=== PATIENT | male | born 1945 | race Caucasian/White ===

== ENCOUNTER 2020-09-09 09:00 | Observation (INO) ==
[~2020-09-09 09:00] MED LIST: Buffered Lidocaine 1% SYRIN 1 ml INTRADERM ONE; Dexamethasone IV 4 MG/ML VIAL 1 ml VIAL IV SLOW PU ONE; Famotidine IV 10 MG/ML 2 ml VIAL (20 mg) IV ONE; Lactated Ringers 1000 ml BAG 1,000 ML IV SCH
[2020-09-09] MEDS ORDERED: cefTRIAXone 2 GM ADDV.VIAL ONE (09:19)
[2020-09-09] MEDS ORDERED: Famotidine IV 10 MG/ML 2 ml VIAL (20 mg) ONE (09:19)
[2020-09-09] MEDS ORDERED: Dexamethasone IV 4 MG/ML VIAL 1 ml VIAL ONE (09:19)
[2020-09-09] MEDS ORDERED: fentaNYL 100 mcg/2 ml 50 MCG/ML VIAL ONE (11:14)
[2020-09-09] MEDS ORDERED: Midazolam 2 mg/2 ml VIAL 1 mg/ml 2 ml VIAL (2 mg) ONE (11:14)
[2020-09-09] MEDS ORDERED: Lidocaine 2% PF 5 ML VIAL ONE (11:40)
[2020-09-09] MEDS ORDERED: Propofol 10 MG/ML 20 ML BTL ONE (11:40)
[2020-09-09] MEDS ORDERED: Ondansetron 4 mg VIAL 2 MG/ML 2 ml VIAL IV PRN (13:11)
[2020-09-09] MEDS ORDERED: HYDROcodone/ACETAMIN 5/325 mg TAB PO PRN (13:11)
[2020-09-09] MEDS ORDERED: Naloxone 0.4 mg VIAL 0.4 mg/ml 1 ml VIAL IV PRN (13:11)
[2020-09-09] MEDS ORDERED: oxyCODONE/Acetamin 5/325 mg TAB PO PRN ×2 (13:11→15:01)
[2020-09-09] MEDS ORDERED: fentaNYL 100 mcg/2 ml 50 MCG/ML VIAL IV PRN (13:11)
[2020-09-09] MEDS ORDERED: Lidocaine 2% JELLY 6 ML TOPICAL PRN (15:02)
[2020-09-09 15:03] LABS: Albumin/Globulin Ratio 1.9 (1-3); Calcium 8.9 mg/dL (8.6-10.3); EGFR African American 134.1 (>60); EGFR Non-African American 110.9 (>60); Globulin 2.1 g/dL (2-4); Magnesium 1.9 mg/dL (1.9-2.7); Potassium 3.7 mmol/L (3.5-5.0); Total Bilirubin 0.8 mg/dL (0.2-1.0); Total Protein 6.1 g/dL (6.4-8.9)
[2020-09-09] MEDS ORDERED: Latanoprost 0.005% 2.5 ml BTL BOTH EYES SCH (21:00)
[2020-09-09] MEDS: NS 0.9% 1,000 ML IV SCH (21:37)
[2020-09-10] MEDS: NS 0.9% 1,000 ML IV SCH (04:19)
[2020-09-10 07:11] VITALS: BP 121/49
== END 2020-09-10 11:14 | disposition home or self-care (01) ==
LOC: SSU 09:00 → OR 09:00
PROVIDERS: ADMIT Urology; ATTEND Hospitalist